=== PATIENT | female | born 1975 | race Caucasian/White ===

== ENCOUNTER 2022-07-12 10:42 | Outpatient (CLI) | payer BC | END 2022-07-12 10:43 | disposition home or self-care (01) | LOC: CSHMAMMO 10:42 | PROVIDERS: ATTEND Obstetrics & Gynecology | DX: Z12.31 Encounter for screening mammogram for malignant neoplasm of breast (principal); Z80.3 Family history of malignant neoplasm of breast | CPT/HCPCS: 77063; 77067 ==